=== PATIENT | male | born 1950 | race Caucasian/White ===

== ENCOUNTER 2020-03-19 16:20 | Emergency (ER) | payer OTHER | END 2020-03-19 16:50 | disposition home or self-care (01) | LOC: JVIRT 16:20 | DX: Z03.818 Encounter for observation for suspected exposure to other biological agents ruled out (principal) | CPT/HCPCS: C9803; Q3014-GT; U0003 ==

== ENCOUNTER 2020-04-14 11:57 | Emergency (ER) | payer OTHER, SELFPAY | END 2020-04-14 13:52 | disposition home or self-care (01) | LOC: JVIRT 11:57 | DX: Z03.818 Encounter for observation for suspected exposure to other biological agents ruled out (principal) | CPT/HCPCS: C9803; G2012-GT; Q3014-GT; U0003 ==